=== PATIENT | male | born 1960 | race African-American/Black ===

== ENCOUNTER 2023-12-10 23:16 | Emergency (ER) | payer BC, MEDICAID ==
[~2023-12-10] VITALS: Ht 188 cm; Wt 98.0 kg
[2023-12-10 23:22] VITALS: BP 156/76; RESP 17; TEMP 98.7; O2SAT 98
[2023-12-10 23:30] VITALS: PULSE 104; O2SAT 95
== END 2023-12-11 02:56 | disposition left against medical advice (07) ==
LOC: ER 23:16
DX: L89.90 Pressure ulcer of unspecified site, unspecified stage (principal); Z53.21 Procedure and treatment not carried out due to patient leaving prior to being seen by health care provider